=== PATIENT | male | born 1975 | race Caucasian/White ===

== ENCOUNTER 2019-11-25 09:37 | Emergency (ER) | payer BC ==
[~2019-11-25] VITALS: Ht 180.3 cm; Wt 145.6 kg
--- NOTE | 2019-11-25 09:45 | NUR ---
Pt ambulated to bed 10.
--- NOTE | 2019-11-25 09:45 | NUR ---
C/O UPPER ABDOMINAL SPASM TYPE PAIN X YRS; RECENTLY PT HAD PAIN AGAIN DURING WORK PT ADDS WAS SEEN AT [facility] 11/18/[address] SCAN AND LABS COMPLETED. LABS SHOWED ELEVATED WHITE COUNT. PCP REFERRED PT TO GO TO ER. PCP WANTS PT TO GET UPPER GI ENDOSCOPY. PT HAS NOT BEEN F/U WITH GI SPECIALIST. DENIES N/V ; LAST BM TODAY NO STRAINING --CONCERNED OVER HIATAL HERNIA REPAIR WITH MESH HX--HTN, ARTHRITIS RX--AMLODIPINE
[2019-11-25 09:49] VITALS: BP 155/99
--- NOTE | 2019-11-25 09:50 | NUR ---
ER AT BEDSIDE
--- NOTE | 2019-11-25 09:56 | NUR ---
Kira kelly in ED - 11/25/[address] WATSON EVALUATING PT AT BEDSIDE
--- NOTE | 2019-11-25 10:07 | NUR ---
AMB TO BATHROOM TO PROVIDE URINE SAMPLE.
--- NOTE | 2019-11-25 10:09 | NUR ---
BROKERAGE COORDINATOR AT BEDSIDE
--- NOTE | 2019-11-25 10:18 | NUR ---
URINE SAMPLE GIVEN TO COLLEGE ARCHIVIST
[2019-11-25 10:28] LABS: BASOPHILS # (AUTO) 0.1 K/uL (0.00-0.22); BASOPHILS % (AUTO) 0.6 % (0.0-2.0); EOSINOPHILS % (AUTO) 0.4 % (0.0-4.0); HEMATOCRIT 43.2 % (36-52); HEMOGLOBIN 14.2 g/dL (12.0-18.0); LYMPHOCYTES # (AUTO) 2.3 K/uL (2.0-11.5); LYMPHOCYTES % (AUTO) 22.2 % (20.5-51.1); MEAN CORPUSCULAR HEMOGLOBIN 30 pg (27-31); MEAN CORPUSCULAR HGB CONC 33 g/dL (33-37); MEAN CORPUSCULAR VOLUME 90.8 fL (80-94); MONOCYTES # (AUTO) 0.7 K/uL (0.8-1.0); MONOCYTES % (AUTO) 6.4 % (1.7-9.3); NEUTROPHILS # (AUTO) 7.2 K/uL (1.8-7.7); NEUTROPHILS % (AUTO) 70.4 % (42.2-75.2); PLATELET COUNT (AUTO) 283 K/uL (140-450); RED BLOOD CELL COUNT(AUTO) 4.76 MIL/uL (4.20-6.10); RED CELL DISTRIBUTION WIDTH 14.5 % (11.6-13.7); WHITE BLOOD COUNT (AUTO) 10.2 K/uL (4.8-10.8)
[2019-11-25 10:45] LABS: APPEARANCE,URINE CLEAR (CLEAR); BILIRUBIN,URINE NEGATIVE (NEGATIVE); BLOOD, URINE NEGATIVE (NEGATIVE); COLOR,URINE YELLOW (YELLOW); LEUKOCYTE ESTERASE ,URINE NEGATIVE (NEGATIVE); NITRITE, URINE NEGATIVE (NEGATIVE); UGLUCOSE NEGATIVE (NEGATIVE)
[2019-11-25 11:45] LABS: ANION GAP 14.9 (8-16); CARBON DIOXIDE 28.1 mmol/L (21-32); CREATININE 0.9 mg/dL (0.7-1.3)
[2019-11-25 11:51] LABS: ALBUMIN 3.4 g/dL (3.4-5.0); TOTAL BILIRUBIN 0.3 mg/dL (0.0-1.0)
--- NOTE | 2019-11-25 12:23 | NUR ---
DR WATSON SPEAKING WITH PT AT BEDSIDE
[2019-11-25 13:02] VITALS: BP 121/77
--- NOTE | 2019-11-25 13:02 | NUR ---
Patient discharged with v/s stable. Written and verbal after care instructions given and explained. Patient verbalized understanding. Ambulatory with steady gait. All questions addressed prior to discharge. Advised to follow up with PMD.
== END 2019-11-25 13:02 | disposition home or self-care (01) ==
LOC: MED 09:37
DX: R10.84 Generalized abdominal pain (principal); D72.829 Elevated white blood cell count, unspecified; G89.29 Other chronic pain; I10 Essential (primary) hypertension
CPT/HCPCS: 36415; 80053; 81003; 83690; 85025; 99283